=== PATIENT | female | born 1950 ===

== ENCOUNTER 2016-10-09 17:49 | Emergency (ER) | payer OTHER ==
[~2016-10-09] VITALS: Ht 160 cm; Wt 110.0 kg
[2016-10-09 17:52] VITALS: BP 210/88; PULSE 60; RESP 18; TEMP 98.1; O2SAT 99
[2016-10-09 18:59] LABS: AUTOMATED NEUTROPHIL # 6.9 TH/MM3 (1.8-7.7); BASOPHIL # 0.1 TH/MM3 (0-0.2); BASOPHIL % 0.7 % (0.0-2.0); EOSINOPHIL # 0.1 TH/MM3 (0-0.4); EOSINOPHIL % 1.4 % (0.0-4.0); HEMATOCRIT 39.5 % (35.0-46.0); HEMO FLAGS DIFF FINAL; LYMPH % 16.8 % (9.0-44.0); LYMPHOCYTE # 1.5 TH/MM3 (1.0-4.8); MEAN CELL VOLUME 89.3 FL (80.0-100.0); MEAN CORPUSCULAR HEMOGLOBIN 29.9 PG (27.0-34.0); MEAN CORPUSCULAR HGB CONC 33.4 % (32.0-36.0); MONO % 5.6 % (0.0-8.0); NEUT % 75.5 % (16.0-70.0); PLATELET COUNT 177 TH/MM3 (150-450); RED BLOOD COUNT 4.43 MIL/MM3 (4.00-5.30); RED CELL DISTRIBUTION WIDTH 13.7 % (11.6-17.2); WHITE BLOOD COUNT 9.2 TH/MM3 (4.0-11.0)
[2016-10-09 19:10] LABS: ANION GAP 7 MEQ/L (5-15); BICARBONATE 27.8 MEQ/L (21.0-32.0); BLOOD UREA NITROGEN 27 MG/DL (7-18); CHLORIDE 105 MEQ/L (98-107); GLOMERULAR FILTRATION RATE 42 ML/MIN (>89); POTASSIUM 4.1 MEQ/L (3.5-5.1); SODIUM (NA) 140 MEQ/L (136-145)
[2016-10-09 19:19] LABS: CREATINE KINASE 53 U/L (26-192)
--- NOTE | 2016-10-10 09:00 | RADRPT ---
EXAM DATE/TIME: 10/09/2016 18:17 [place] COMPARISON: No previous studies available for comparison. INDICATIONS : Chest pain MEDICAL HISTORY : None. SURGICAL HISTORY : None. ENCOUNTER: Initial ACUITY: 1 day PAIN SCORE: 5/10 LOCATION: chest FINDINGS: Minimal linear parenchymal opacity at the lateral left base is likely scarring or atelectasis. Lungs otherwise clear. No pleural effusion suspected. Cardiomediastinal contours satisfactory. CONCLUSION: Minimal parenchymal opacity at the left lung base. Chaitanya Austin MD on October 10, 2016 at 8:57 Board Certified Radiologist. This report was verified electronically.
--- NOTE | 2016-10-10 14:23 | EKG ---
Date Performed: 10/09/2016 Time Performed: 18:25:30 PTAGE: 66 years EKG: SINUS BRADYCARDIA BORDERLINE ECG NO PREVIOUS TRACING DOCTOR: Cherelle Wiley Interpretating Date/Time 10/10/2016 14:21:16
== END 2016-10-09 22:01 | disposition left against medical advice (07) ==
LOC: NED 17:49
DX: R07.9 Chest pain, unspecified (principal); R06.02 Shortness of breath; Z53.21 Procedure and treatment not carried out due to patient leaving prior to being seen by health care provider
CPT/HCPCS: 71010; 80048; 82550; 84484; 85025; 93005; 99281